=== PATIENT | male | born 1970 | race Two or more races ===

== ENCOUNTER 2017-08-12 13:13 | Emergency (ER) | payer MEDICAID ==
--- NOTE | 2017-08-12 14:52 | EDM.PDOC ---
ED HPI GENERAL MEDICAL PROBLEM - General Chief Complaint: Lower Extremity Injury/Pain Stated Complaint: LEFT KNEE PAIN Time Seen by Provider: 08/12/17 13:34 Source of Information: Reports: Patient History Limitations: Reports: No Limitations - History of Present Illness INITIAL COMMENTS - FREE TEXT/NARRATIVE: The patient presents with knee pain. 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 He had an injection and some fluid taken out. He denies any new injury other then with his job on uneven ground. He has no other pain. He says his knee feels unstable at times. Onset: Gradual Duration: Day(s): Location: Reports: Lower Extremity, Left (Knee) Quality: Reports: Sharp Severity: Moderate Improves with: Reports: Immobilization Worsens with: Reports: Movement Context: Reports: Activity (Working construction) Associated Symptoms: Reports: No Other Symptoms Left Knee Pain Score (Numeric/FACES): 8 - Related Data Allergies Allergy/AdvReac Type Severity Reaction Status Date / Time No Known Allergies Allergy Verified 08/12/17 13:36 Home Meds: Home Meds Hydrocodone/Acetaminophen [Hydrocodon-Acetaminophen 5-325] 1 - 2 each PO Q6HR PRN #20 tablet 08/12/17 [Rx] Naproxen [Naprosyn] 500 mg PO Q12HR PRN #30 tab 08/12/17 [Rx] Past Medical History - Past Health History Medical/Surgical History: Denies Medical/Surgical History Cardiovascular History: Reports: Hypertension Genitourinary History: Reports: Renal Calculus Social & Family History - Tobacco Use Smoking Status *Q: Never Smoker Review of Systems - Review of Systems Review Of Systems: See Below Constitutional: Reports: No Symptoms Eyes: Reports: No Symptoms Ears: Reports: No Symptoms Nose: Reports: No Symptoms Mouth/Throat: Reports: No Symptoms Respiratory: Reports: No Symptoms Cardiovascular: Reports: No Symptoms GI/Abdominal: Reports: No Symptoms Genitourinary: Reports: No Symptoms Musculoskeletal: Reports: Other (Left knee pain) ED EXAM, GENERAL - Physical Exam Exam: See Below Exam Limited By: No Limitations General Appearance: Alert, No Apparent Distress Ears: Normal External Exam Nose: Normal Inspection Head: Atraumatic, Normocephalic Neck: Normal Inspection Respiratory/Chest: No Respiratory Distress Extremities: Other (Left knee has mild edema and pain upon palpation to the medial knee. Good sensation and pulses distally. He has no ligament laxity.) Course - Vital Signs Last Recorded V/S: Last Vital Signs Temp 98.1 F 08/12/17 13:33 Pulse 82 08/12/17 13:33 Resp 18 08/12/17 13:33 BP 138/102 H 08/12/17 13:33 Pulse Ox 100 08/12/17 13:33 - Orders/Labs/Meds Orders: Active Orders 24 hr Category Date Time Status Knee Min 4V Lt [CR] Stat Exams 08/12/17 13:41 Taken - Re-Assessments/Exams Free Text/Narrative Re-Assessment/Exam: 08/12/17 14:50 The x-ray shows some mild arthritis and mild edema. I will get him a knee brace and some antiinflammatory. Departure - Departure Time of Disposition: 14:55 Disposition: Home, Self-Care 01 Condition: Good Clinical Impression: Arthritis of left knee Left knee pain Qualifiers: Chronicity: chronic Qualified Code(s): M25.562 - Pain in left knee; G89.29 - Other chronic pain - Discharge Information Prescriptions: Hydrocodone/Acetaminophen [Hydrocodon-Acetaminophen 5-325] 1 - 2 each PO Q6HR PRN #20 tablet PRN Reason: Pain Naproxen [Naprosyn] 500 mg PO Q12HR PRN #30 tab PRN Reason: Pain Referrals: PCP,Not In Area [Primary Care Provider] - Jose L Whitman MD [Physician] - 1 Week Forms: ED Department Discharge, ED Return to Work/School Form Additional Instructions: Wear the knee brace for comfort. Take the naprosyn for pain. You may also take some hydrocodone for pain if that does not help. Try some ice on your knee for 15 minutes 3 times per day for 2 days. Follow up with Dr Whitman. - My Orders Last 24 Hours: My Active Orders 08/12/17 13:41 Knee Min 4V Lt [CR] Stat - Assessment/Plan Last 24 Hours: My Active Orders 08/12/17 13:41 Knee Min 4V Lt [CR] Stat
--- NOTE | 2017-08-13 08:54 | CR ---
Left knee: Four views of the left knee were obtained. Comparison: No previous study. Medial and lateral joint compartments are maintained in height. No joint effusion is seen. No acute fracture or other bony abnormality is seen. Impression: 1. No abnormality is seen on left knee exam. Diagnostic code #1
== END 2017-08-12 15:10 | disposition home or self-care (01) ==
LOC: JD.ED 13:13
DX: M17.12 Unilateral primary osteoarthritis, left knee (principal); I10 Essential (primary) hypertension
CPT/HCPCS: 73564-26-LT; 73564-LT; 99283

== ENCOUNTER 2021-07-29 04:20 | Emergency (ER) | payer MEDICAID ==
[2021-07-29] MEDS ORDERED: Lactated Ringers 1,000 ML IV ONE ×2 (04:40→05:46)
[2021-07-29] MEDS ORDERED: Ketorolac 15 MG/ML SDV IVPUSH ONE (04:48)
[2021-07-29 05:37] LABS: ESTIMATED GFR > 60 mL/min (>60)
== END 2021-07-29 06:55 | disposition home or self-care (01) ==
LOC: JD.ED 04:20
DX: N41.0 Acute prostatitis (principal); B96.89 Other specified bacterial agents as the cause of diseases classified elsewhere; I10 Essential (primary) hypertension; Z79.899 Other long term (current) drug therapy; Z20.822 Contact with and (suspected) exposure to COVID-19
CPT/HCPCS: 36415; 74176; 80053; 81001; 83605; 83690; 85025; 85610; 86140; 87040; 87086; 87635; 96374; 99284; G0103; J1885; J7120; U0002